=== PATIENT | male | born 1965 | race Caucasian/White ===

== ENCOUNTER → 2016-08-11 | Outpatient (CLI) | payer BC ==
[2016-08-11 13:01] VITALS: BP 137/85
--- NOTE | 2016-08-11 13:01 | Urgent Care T Sheet Gen (E) ---
Intake General Temperature (Fahrenheit): 97.7 Pulse: 54 Blood Pressure Systolic: 137 Blood Pressure Diastolic: 85 Respirations: 18 SPO2: 98 Description of Symptoms Patient presents with a gout flare up. States he has been eating ham since and believes that caused the flare up. Last one was 4 years ago and was treated with a steroid shot. Patient doesn't take any maintenance meds, states it is well controlled with diet. Respiratory Constitutional Symptoms: No syptoms reported EENTM: No symptoms reported Respiratory: No symptoms reported Cardiovascular: No symptoms reported Musculoskeletal: Joint pain Joint swelling Skin: Change in color All Other Systems Reviewed Remaining Systems: All other systems reviewed with negative findings Physical Exam Physical Exam General Appearance: WD/WN No apparent distress Skin Exam: Other (R 1st MTP joint is red and swollen) Extremity Exam: Full range of motion (R great toe) Tenderness (over the R 1st MTP joint) Medications Administered Medications Adminstered: Depomedrol (80mg IM injection into the L gluteal Lot [id number] Exp 01/2017) Departure Urgent Care Impression Impression: Primary Impression: Gout Qualified Code: M10.9 - Gout, unspecified Departure Disposition: 01 HOME OR SELF-CARE Condition: Stable Referrals: Cm Morelos (PCP) Additional Instructions: Patient received a steroid shot today. States that usually helps with his flare ups. In case the shot doesn't completely alleviate the inflammation, I sent home a prescription for Indomethacin 50mg tabs TID x 7 days. Give it a day or 2 before starting the oral NSAID Avoid triggering foods Return as needed If flare ups persist, may need daily maintenance meds Patient understands DC instructions. All questions were answered. End of report . JOSE R GREWAL Aug 11, 2016 13:01
== END ==
LOC: MHUC 12:14
PROVIDERS: ATTEND Physician Assistant
DX: M10.9 Gout, unspecified (principal)
CPT/HCPCS: 99203